=== PATIENT | female | born 2000 | race African-American/Black ===

== ENCOUNTER 2020-08-22 14:00 | Emergency (ER) | payer SELFPAY ==
[~2020-08-22] VITALS: Ht 154.9 cm; Wt 44.5 kg
[2020-08-22 14:18] VITALS: BP 123/92
== END 2020-08-22 14:58 | disposition home or self-care (01) ==
LOC: EMS 14:10
DX: T78.40XA Allergy, unspecified, initial encounter (principal); X58.XXXA Exposure to other specified factors, initial encounter